=== PATIENT | male | born 1995 | race African-American/Black ===

== ENCOUNTER 2018-05-04 09:31 | Emergency (ER) | payer SELFPAY ==
[~2018-05-04] VITALS: Ht 177.8 cm; Wt 66.0 kg
[2018-05-04] MEDS ORDERED: LIDOCAINE HCL 1% 20ML VIAL (Pyxis) INJ INFIL ONE (12:15)
[2018-05-04] MEDS ORDERED: TETANUS, DIPHTHERIA, PERTUSSIS VAC/PF 0.5ML (>7YR OLD) IM ONE (12:15)
[2018-05-04] MEDS ORDERED: SODIUM CHLORIDE 0.9% IRRIG SOLUTION 1000ML IR ONE (12:15)
[2018-05-04] MEDS ORDERED: CEPHALEXIN 500MG CAPSULE PO ONE (12:15)
[2018-05-04] MEDS ORDERED: LIDOCAINE HCL/PF 1% 10 MG/ML 5ML VIAL IJ ONE (13:12)
[2018-05-04 15:50] VITALS: BP 122/64
== END 2018-05-04 17:34 | disposition home or self-care (01) ==
LOC: ER 11:32
DX: S01.411A Laceration without foreign body of right cheek and temporomandibular area, initial encounter (principal); F12.10 Cannabis abuse, uncomplicated; Y08.89XA Assault by other specified means, initial encounter; Y93.89 Activity, other specified; Y92.89 Other specified places as the place of occurrence of the external cause; Y99.8 Other external cause status
CPT/HCPCS: 12011; 70450; 90471; 90715; 99284; J3490; Z7610

== ENCOUNTER 2020-09-22 16:25 | Emergency (ER) | payer MEDICAID ==
[~2020-09-22] VITALS: Ht 177.8 cm; Wt 68.0 kg
[2020-09-22] MEDS ORDERED: ACETAMINOPHEN 325MG TABLET PO STA (17:07)
[2020-09-22] MEDS ORDERED: SULFAMETHOXAZOLE/TRIMETHOPRIM 800/160MG TABLET PO ONE (17:15)
[2020-09-22] MEDS ORDERED: AMOXICILLIN/POTASSIUM CLAVULANATE 875/125MG TAB PO ONE (17:15)
[2020-09-22 18:03] LABS: BASOPHILS % 0.7 % (0.0-2.0); EOSINOPHILS % 1.2 % (0.0-5.0); HEMATOCRIT. 43.2 % (42.0-52.0); HEMOGLOBIN. 14.7 g/dL (14.0-18.0); LYMPHOCYTES % 15.9 % (20.0-50.0); MEAN CORPUSCULAR HEMOGLOBIN 31.8 pg (28.0-32.0); MEAN CORPUSCULAR VOLUME 93.6 fL (80.0-94.0); MEAN PLATELET VOLUME 8.3 fl (7.4-10.4); MONOCYTES % 7.2 % (2.0-8.0); PLATELET 346 x1000/uL (130-400); RED BLOOD CELL COUNT 4.62 mill/uL (4.7-6.1); RED CELL DISTRIBUTION WIDTH 13.1 % (11.6-14.6)
[2020-09-22 18:08] LABS: CHLORIDE 107 mEq/L (98-107)
[2020-09-22 18:10] LABS: CLARITY URINE CLEAR (CLEAR); COLOR URINE YELLOW (YELLOW); KETONES URINE NEGATIVE (NEGATIVE); LEUKOCYTE ESTERASE URINE NEGATIVE (NEGATIVE); NITRITE URINE NEGATIVE (NEGATIVE); OCCULT BLOOD URINE NEGATIVE (NEGATIVE); PH URINE 5.5 (4.5-8.0); PROTEIN URINE TRACE (NEGATIVE); SPECIFIC GRAVITY URINE 1.031 (1.005-1.030)
[2020-09-22 19:55] VITALS: BP 135/68
== END 2020-09-22 19:56 | disposition home or self-care (01) ==
LOC: ER 16:25
DX: L03.114 Cellulitis of left upper limb (principal); R07.89 Other chest pain; I10 Essential (primary) hypertension; F11.10 Opioid abuse, uncomplicated
CPT/HCPCS: 36415; 71045; 80053; 81003; 84484; 85025; 93005; 99284

== ENCOUNTER 2021-04-16 17:26 | Emergency (ER) | payer MEDICAID ==
[~2021-04-16] VITALS: Ht 177.8 cm; Wt 73.0 kg
[~2021-04-16 17:26] MED LIST: AMOX1TAB16 PO; SULF-288 MT
[2021-04-16] MEDS ORDERED: ACETAMINOPHEN 325MG TABLET PO ONE (18:15)
[2021-04-16 19:29] VITALS: BP 132/96
== END 2021-04-16 19:30 | disposition home or self-care (01) ==
LOC: ER 17:26
DX: M25.571 Pain in right ankle and joints of right foot (principal); I10 Essential (primary) hypertension; F14.10 Cocaine abuse, uncomplicated; F12.10 Cannabis abuse, uncomplicated; F15.10 Other stimulant abuse, uncomplicated
CPT/HCPCS: 73610; 99283

== ENCOUNTER 2022-07-24 21:02 | Emergency (ER) | payer MEDICAID ==
[~2022-07-24 21:02] MED LIST changes: +SULF-13 MT; -SULF-288 MT
[2022-07-25] MEDS ORDERED: CEPH500C2 MT (02:41)
== END 2022-07-24 21:55 | disposition left against medical advice (07) ==
LOC: ER 21:02
DX: Z53.21 Procedure and treatment not carried out due to patient leaving prior to being seen by health care provider (principal)

== ENCOUNTER 2022-07-25 00:25 | Emergency (ER) | payer MEDICAID ==
[~2022-07-25] VITALS: Ht 177.8 cm; Wt 71.8 kg
[2022-07-25] MEDS ORDERED: CEPH500C2 MT (02:41)
[2022-07-25] MEDS ORDERED: CEPHALEXIN 250MG CAPSULE PO ONE (02:45)
[2022-07-25 03:25] VITALS: BP 135/82
== END 2022-07-25 03:27 | disposition home or self-care (01) ==
LOC: ER 00:25
DX: S80.862A Insect bite (nonvenomous), left lower leg, initial encounter (principal); S80.861A Insect bite (nonvenomous), right lower leg, initial encounter; L03.116 Cellulitis of left lower limb; L03.115 Cellulitis of right lower limb; I10 Essential (primary) hypertension; F14.10 Cocaine abuse, uncomplicated; F12.10 Cannabis abuse, uncomplicated; F15.10 Other stimulant abuse, uncomplicated; F11.10 Opioid abuse, uncomplicated; Z59.00 Homelessness unspecified; W57.XXXA Bitten or stung by nonvenomous insect and other nonvenomous arthropods, initial encounter; Y93.89 Activity, other specified; Y92.89 Other specified places as the place of occurrence of the external cause
CPT/HCPCS: 99283

== ENCOUNTER 2024-12-13 19:15 | Emergency (ER) | payer MEDICAID ==
[~2024-12-13] VITALS: Ht 180.3 cm; Wt 82.9 kg
[~2024-12-13 19:15] MED LIST changes: +CEPH500C2 MT
[2024-12-13 20:04] VITALS: O2SAT 98
[2024-12-14] MEDS: IBUPROFEN 600MG TABLET PO ONE
[2024-12-14] MEDS: TETANUS, DIPHTHERIA, PERTUSSIS VAC/PF 0.5ML (>10YR OLD) IM ONE
[2024-12-14] MEDS: LIDOCAINE HCL/PF 1% 10 MG/ML 5ML VIAL INFIL ONE (00:01)
[2024-12-14] MEDS ORDERED: BO1 TP (00:19)
[2024-12-14] MEDS ORDERED: IBUP-2029 MT (00:19)
[2024-12-14] MEDS: BACITRACIN ZINC OINT UDPKT TOP ONE (00:39)
[2024-12-14 00:57] VITALS: BP 132/89; PULSE 52; RESP 16; TEMP 37.00296; O2SAT 98
== END 2024-12-14 00:58 | disposition home or self-care (01) ==
LOC: ER 19:15
DX: S61.217A Laceration without foreign body of left little finger without damage to nail, initial encounter (principal); F14.90 Cocaine use, unspecified, uncomplicated; F12.90 Cannabis use, unspecified, uncomplicated; F11.90 Opioid use, unspecified, uncomplicated; W26.0XXA Contact with knife, initial encounter; Y93.89 Activity, other specified; Y92.89 Other specified places as the place of occurrence of the external cause; Y99.8 Other external cause status
CPT/HCPCS: 99283; 90715; 12001; 90471; J2003